=== PATIENT | female | born 1995 | race Caucasian/White ===

== ENCOUNTER → 2024-05-03 06:24 | Day surgery (SDC) | payer OTHER, SELFPAY | LOC: GI 06:24 | PROVIDERS: ATTENDING PHYSICIAN Internal Medicine Gastroenterology | DX: K51.211 Ulcerative (chronic) proctitis with rectal bleeding (principal) | CPT/HCPCS: 45331; 88305 ==

== ENCOUNTER 2025-02-23 17:51 | Emergency (ER) | payer OTHER, SELFPAY ==
[2025-02-23 17:53] VITALS: BP 132/91
[2025-02-23 18:11] LABS: Hematocrit 39.3 % (37.0-47.0); Hemoglobin 13.6 g/dL (12.0-16.0); Mean Corp Hgb Conc. 34.6 g/dL (33.0-37.0); Mean Corpuscular Volume 79.9 fL (81.0-99.0); Nucleated Red Blood Cells % 0 %; Platelet Count 286 10^3/uL (130-400); Red Cell Dist. Width 12.8 % (11.5-14.5)
[2025-02-23 18:26] LABS: Urine Character Clear (Clear)
[2025-02-23 18:27] LABS: ALT (SGPT) 24 U/L (0-35); AST (SGOT) 30 U/L (14-36); Albumin 5.0 g/dl (3.5-5.0); Alkaline Phosphatase 56 U/L (38-126); Blood Urea Nitrogen 10 mg/dl (7-17); Calcium 9.6 mg/dl (8.4-10.2); Carbon Dioxide 28 mmol/L (22-30); Chloride 105 mmol/L (98-107); Glucose 99 mg/dl (70-99); Potassium 4.2 mmol/L (3.5-5.1); Sodium 141 mmol/L (135-145); Total Protein 8.0 g/dl (6.3-8.2); eGFR > 60.00
[2025-02-23 18:29] LABS: HCG, Serum Qualitative Screen Negative
[2025-02-23 18:31] LABS: Urine Squamous Cell >30 /LPF (Few)
[2025-02-23 18:33] LABS: Urine Red Blood Cell 16-20 /HPF (0-2); Urine White Cell 0-2 /HPF (0-5)
--- NOTE | 2025-02-23 20:58 | ED.GENMED ---
History of Present Illness
General
Chief Complaint: Abdominal Pain
Source: patient
Exam Limitations: none
Time Seen by Provider: 02/23/25 20:50
History of Present Illness
History of Present Illness:
Patient to ED with complaint of left sided abd. pain. Pain started suddenly tonight, comes in waves. No n/v/d. No fever, chills. Brought self to ED for victorino
Past History
Past History
ED Past Medical History: Other (Ulcerative colitis)
ED Past Surgical History: Gynecological (Tube removal for ruptured ectopic), Tonsilectomy and Other (Myringotomy tubes)
Social History
Tobacco: Non-smoker
Alcohol: None
Drug: None
Personal:
Living: with family
Employment: Employed
Family History
Family History: Other (No family history of IVD)
Review of Systems
Review of Systems
Allergies reviewed?: Yes
All Other Systems: ROS reviewed and negative except as documented in HPI and ROS
Constitutional: Reports no symptoms
EENT: Reports no symptoms
Respiratory: Reports no symptoms
Cardiac: Reports no symptoms
ABD/GI: Reports abdominal pain (left sided abd. pain)
: Reports no symptoms
Musculoskeletal: Reports no symptoms
Skin: Reports no symptoms
Neurological: Reports no symptoms
Psychiatric: Reports no symptoms
Phy Exam
General Physical Exam
General Presentation: well appearing and no apparent distress
General age: appears stated age
General Skin: warm and dry
General Habitus: normal
General Mental: alert
Cardiovascular Exam
Cardiovascular Exam: regular rate/rhythm and no edema
Pulmonary Exam
Pulmonary Exam: lungs clear and no respiratory distress
Gastrointestinal Exam
Gastrointestinal Exam: normal bowel sounds, soft, no organomegaly, no pulsatile mass, non distended and no cva tenderness
Palpation: left upper quadrant: Moderate tenderness, left lower quadrant: Moderate tenderness, right upper quadrant: No tenderness and right lower quadrant: No tenderness
Musculoskeletal Exam
Musculoskeletal Exam: full ROM and neuro vasc intact
Skin Exam
Skin Exam: normal color, warm/dry and no rash
Psychiatric Exam
Psychiatric Exam: normal mood/affect
Course
Orders/Labs/Results
Orders:
Orders
02/23/25 17:56
Test Result ONCE
02/23/25 18:00
Complete Blood Count/With Diff Urgent
Comprehensive Metabolic Panel Urgent
HCG, Serum Qualitative Screen Urgent
Urinalysis Reflex To Culture Urgent
Date Specimen was Collected: 02/23/25
Time Specimen was Collected: 17:56
Urine Microscopic Reflex Cult Urgent
Urine Culture Urgent
DORIS Source: U
Specimen Description:
Date Specimen was Collected: 02/23/25
Time Specimen was Collected: 17:56
02/23/25 20:56
0.9% Sodium Chloride 1000 ml [Nss] 1,000 ml IV BOLUS
HYDROmorphone [Dilaudid] 0.5 mg IV NOW STA
Ondansetron Injectable [Zofran] 4 mg IV NOW STA
02/23/25 20:57
CT Abd/pelvis W Iv Cont Urgent
Comment:
Reason For Exam: left abdominal pain
02/23/25 22:02
HYDROmorphone [Dilaudid] 0.5 mg .ROUTE .STK-MED ONE
02/23/25 22:05
HYDROmorphone [Dilaudid] 0.5 mg IV NOW STA
02/23/25 22:29
Ketorolac [Toradol] 30 mg IV NOW STA
Abnormal Lab Results
02/23/25
18:00
WBC 13.5 H 10^3/uL
(4.8-10.8)
MCV 79.9 L fL
(81.0-99.0)
Abs Immat Gran (auto) 0.1 H 10^3/uL
(0-0.05)
Absolute Neuts (auto) 11.0 H 10^3/uL
(1.4-6.5)
Neutrophils % 81.8 H %
(42.2-75.2)
Lymphocytes % 12.9 L %
(20.5-51.1)
Urine Ketones 3+ A
(Negative)
Ur Occult Blood Reflex 4+ A
(Negative)
Urine RBC 16-20 A /HPF
(0-2)
Urine Bacteria (Reflex) Many A
(Negative)
Urine Albumin (Reflex) 1+ A
(Neg - Trace)
02/23/25 18:00
02/23/25 18:00
Vital Signs
Initial and Last Documented VS:
Initial Vital Signs
Temp Pulse Resp BP Pulse Ox
98.0 F 92 20 132/91 99
02/23/25 17:53 02/23/25 17:53 02/23/25 17:53 02/23/25 17:53 02/23/25 17:53
Last Documented Vital Signs
Temp Pulse Resp BP Pulse Ox
98.0 F 92 20 135/68 100
02/23/25 17:53 02/23/25 17:53 02/23/25 17:53 02/23/25 21:28 02/23/25 21:30
*Radiology
Radiology exam reviewed: radiology read reviewed
*Pulse Oximetry
SaO2: 99
Oxygen Mode of Delivery: Room air
Patient hypoxic: no
*Critical Care Note
Total Time (30-74mins, 75-104mins- exclusive of procedures): Not Applicable
Update Note
Update Note:
Patient to ED [facility] report of sudden onset of left sided abd pain this evening. Pain comes in waves. No n/v/d. No history of same. CT reviewed - supsicious of left distal ureter renal stone. Mild hydro, no UTI. No pelvic pain, I do not feel that
pain is indicitve ot ovarian torsion. Pain controlled with pain meds in ED. WIll discharge home, she will strain her urine, followup with Urology. She was given instructions on s/s to return to ED and she is agreeable to plan. Case discussed
with Dr. Garcia who agrees with findings and plan.
ED Attending Note
-
Portions of this chart may have been created with voice recognition software.� Occasional wrong word or��sound alike� substitutions may have occurred due to the inherent limitations of voice recognition software.
Discharge Plan
Departure
Patient Disposition: Home (Routine Discharge)
Date of Disposition: 02/23/25
Time of Disposition: 22:23
Patient with high blood pressure during this ER visit?: No
Condition: Good
Covid-19: Not Applicable
Discharge Problem:
Kidney stones
Instructions: Kidney Stones (DC), Ibuprofen
Prescriptions:
New
oxycodone 5 mg capsule
5 mg PO Q4H PRN (Reason: Pain) Qty: 12 0RF
No Action
mesalamine 1,000 mg suppository
1,000 mg NE HS
mesalamine 1.2 gram tablet,delayed release (DR/EC)
2.4 g PO DAILY
omega 9-fdl-int-fish oil [Fish Oil] 1,000 mg (120 mg-180 mg) Capsule
1 cap PO DAILY
Probiotic
1 tab PO DAILY
ashwagandha extract
1 tab PO DAILY
Referrals:
Ayaz Dyer MD [Active, Urology] - Call in 1-3 days for appt
Ella Navas PA-C [Family Provider, General]
Interventions
Interventions:
*Risk Screen - Suicide Last Done: 02/23/25 21:26
*General Assessment Last Done: 02/23/25 17:53
*Neglect/Abuse Screening Last Done: 02/23/25 21:26
*ED- Fall Risk Assessment Last Done: 02/23/25 21:17
*ED COVID-19 Vaccine History Last Done: 02/23/25 21:17
*ED Influenza Vaccine History Last Done: 02/23/25 21:17
*Nursing Disposition Last Done: 02/23/25 22:49
II-Zpuaej-Bxurrvpyal Assessment Last Done: 02/23/25 21:18
Discharge Date and Time
Discharge Date/Time: 02/23/25 22:50
Print Language: TAIWANESE
[2025-02-23] MEDS: DILAUDID 0.5 MG IV ×2 (21:23→22:05)
[2025-02-23] MEDS: NSS 1000 IV (21:25)
[2025-02-23] MEDS: ZOFRAN 4 MG IV (21:25)
[2025-02-23 21:26] VITALS: BMI 23.5
[2025-02-23 21:28] VITALS: BP 135/68
[2025-02-23] MEDS: TORADOL 30 MG IV (22:32)
== END 2025-02-23 22:50 | disposition home or self-care (01) ==
LOC: EMR 17:51
PROVIDERS: Emergency Medicine; EMERGENCY PHYSICIAN Emergency Medicine; FAMILY PHYSICIAN Physician Assistant
DX: N13.2 Hydronephrosis with renal and ureteral calculous obstruction (principal); K51.90 Ulcerative colitis, unspecified, without complications
CPT/HCPCS: 99284; 96374; 96375 ×2; 96376; 96361; 74177; 80053; 81003; 81015; 84703; 85025; 87086; Q9967